=== PATIENT | female | born 1995 | race Caucasian/White ===

== ENCOUNTER 2020-10-19 19:28 | Emergency (ER) | payer OTHER ==
[~2020-10-19 19:28] MED LIST: COLACE 100MG C100 MG PO
[2020-10-19 19:55] LABS: HEMOGLOBIN 12.3 gm/dl (12.3-15.3); RED BLOOD COUNT 4.52 M/UL (4.00-5.10); WHITE BLOOD COUNT 11.5 K/UL (4.5-11.0)
[2020-10-19 20:18] LABS: BUN/CREATININE RATIO 8 (0-10)
== END 2020-10-19 22:21 | disposition home or self-care (01) ==
LOC: ER1 19:28
PROVIDERS: Family Medicine
DX: N92.0 Excessive and frequent menstruation with regular cycle (principal); Z88.1 Allergy status to other antibiotic agents; Z88.0 Allergy status to penicillin
CPT/HCPCS: 80053; 81001; 84702; 85025; 86900; 86901; 93005; 96374; 99284; J2060